=== PATIENT | male | born 1945 | race Caucasian/White ===

== ENCOUNTER 2017-11-20 22:29 | Emergency (ER) | payer MEDICARE, BC ==
[2017-11-20] MEDS ORDERED: diphenhydrAMINE 25 MG Cap PO ONE (22:56)
[2017-11-20] MEDS ORDERED: Famotidine 20 MG Tab PO ONE (22:59)
[2017-11-20] MEDS ORDERED: predniSONE 20 MG Tab PO ONE (23:00)
--- NOTE | 2017-11-20 23:14 | EDM.PDOC ---
ED HPI GENERAL MEDICAL PROBLEM - General Chief Complaint: Skin Complaint Stated Complaint: ALLERGIC REACTION Time Seen by Provider: 11/20/17 22:55 Source of Information: Reports: Patient, RN History Limitations: Reports: No Limitations - History of Present Illness INITIAL COMMENTS - FREE TEXT/NARRATIVE: 72 yo male presents with hives and generalized itching that began about 9 pm this rupesh. No difficulty with breathing or swallowing. Took diphenhydramine 50 mg about 90 minutes ago without relief. No hx of the same. Had shrimp today about 2 pm. No new medications. Here with his . 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 Medication(s) (Benedryl 50 mg po) denies pain Pain Score (Numeric/FACES): 0 - Related Data Allergies Allergy/AdvReac Type Severity Reaction Status Date / Time No Known Allergies Allergy Verified 11/20/17 22:40 Home Meds: Home Meds Albuterol Sulfate [Albuterol Sulfate HFA] 108 mcg IH Q4HR PRN 05/14/13 [History] Carvedilol 25 mg PO BID 05/14/13 [History] Cholecalciferol (Vitamin D3) [Vitamin D] 2,000 unit PO DAILY 05/14/13 [History] Citalopram Hydrobromide [Celexa] 40 mg PO DAILY 05/14/13 [History] Insulin Detemir [Levemir] 55 units SQ BEDTIME 05/14/13 [History] Lisinopril 40 mg PO DAILY 05/14/13 [History] [place]-3 Fatty Acids [[place]-3] 1,000 mg PO DAILY 05/14/13 [History] metFORMIN HCl [Metformin HCl] 1,000 mg PO BID 05/14/13 [History] Acetaminophen [Tylenol Arthritis Pain] 650 mg PO Q8H PRN 10/26/13 [History] Aspirin [[place] Aspirin] 81 mg PO DAILY 10/26/13 [History] diphenhydrAMINE [Benadryl] 25 mg PO Q6H PRN 02/28/16 [History] Past Medical History HEENT History: Reports: Cataract, Impaired Vision Cardiovascular History: Reports: Bypass, Hypertension Musculoskeletal History: Reports: Back Pain, Chronic, Gout, Other (See Below) Other Musculoskeletal History: compressed discs L2-L5 Psychiatric History: Reports: Depression Endocrine/Metabolic History: Reports: Diabetes, Type II, Obesity/BMI 30+ - Infectious Disease History Infectious Disease History: Reports: Chicken Pox, Measles - Past Surgical History HEENT Surgical History: Reports: Cataract Surgery Musculoskeletal Surgical History: Reports: Other (See Below) Other Musculoskeletal Surgeries/Procedures:: torn meniscus repair Social & Family History - Tobacco Use Smoking Status *Q: Never Smoker - Caffeine Use Caffeine Use: Reports: Coffee, Soda, Tea - Recreational Drug Use Recreational Drug Use: No ED ROS GENERAL - Review of Systems Review Of Systems: See Below Constitutional: Reports: No Symptoms HEENT: Reports: No Symptoms Respiratory: Reports: No Symptoms Cardiovascular: Reports: No Symptoms GI/Abdominal: Reports: No Symptoms : Reports: No Symptoms Musculoskeletal: Reports: No Symptoms Skin: Reports: Pruritis, Erythema, Urticaria Neurological: Reports: No Symptoms ED EXAM, SKIN/RASH Exam: See Below Exam Limited By: No Limitations General Appearance: Alert, WD/WN, No Apparent Distress, Obese Eye Exam: Bilateral Eye: Normal Inspection Ears: Normal External Exam, Normal Canal, Hearing Grossly Normal, Normal TMs, Other (bilateral hearing aids) Nose: Normal Inspection, Normal Mucosa, No Blood Throat/Mouth: Normal Inspection, Normal Lips, Normal Oropharynx, Normal Voice, No Airway Compromise Head: Atraumatic, Normocephalic Neck: Normal Inspection, Supple, Non-Tender Respiratory/Chest: No Respiratory Distress, Lungs Clear, Normal Breath Sounds, No Accessory Muscle Use Cardiovascular: Regular Rate, Rhythm, No Edema GI/Abdominal: Normal Bowel Sounds, Soft, Non-Tender, No Distention Back Exam: Normal Inspection. No: CVA Tenderness (R), CVA Tenderness (L) Extremities: Normal Inspection, Normal Range of Motion, Non-Tender, No Pedal Edema Neurological: Alert, Oriented, CN II-XII Intact, Normal Cognition, No Motor/ Sensory Deficits Psychiatric: Normal Affect, Normal Mood Skin: Warm, Dry, Intact, Normal Color, Erythema, Rash Location, Skin: Generalized Characteristics: Urticarial Course - Vital Signs Text/Narrative:: diphenhydramine 50 mg po, famotidine 40 mg po, prednisone 40 mg po-slight benefit Epi 0.5 mg subcut-mostly gone Last Recorded V/S: Last Vital Signs Temp 35.9 C 11/20/17 23:58 Pulse 50 L 11/21/17 00:13 Resp 13 11/21/17 00:13 BP 174/71 H 11/21/17 00:13 Pulse Ox 95 11/21/17 00:13 - Orders/Labs/Meds Meds: Medications Discontinued Medications Generic Name Dose Route Start Last Admin Trade Name Marcy PRN Reason Stop Dose Admin Diphenhydramine HCl 50 mg 11/20/17 22:56 11/20/17 23:01 Benadryl PO 11/20/17 22:57 50 mg ONETIME ONE Administration Epinephrine HCl 0.5 mg 11/20/17 23:58 11/21/17 00:08 Adrenalin SUBCUT 11/20/17 23:59 0.5 mg ONETIME ONE Administration Famotidine 40 mg 11/20/17 22:59 11/20/17 23:06 Pepcid PO 11/20/17 23:00 40 mg ONETIME ONE Administration Prednisone 40 mg 11/20/17 23:00 11/20/17 23:06 Prednisone PO 11/20/17 23:01 40 mg ONETIME ONE Administration Departure - Departure Time of Disposition: 00:30 Disposition: Home, Self-Care 01 Condition: Fair Clinical Impression: Urticaria - Discharge Information Referrals: Melvin Chiu MD [Primary Care Provider] - Forms: ED Department Discharge
[2017-11-20] MEDS ORDERED: EPINEPHrine 1 MG/ML SDV SUBCUT ONE (23:58)
== END 2017-11-21 00:44 | disposition home or self-care (01) ==
LOC: JP.ED 22:29
DX: L50.9 Urticaria, unspecified (principal); I10 Essential (primary) hypertension; E11.9 Type 2 diabetes mellitus without complications; E66.9 Obesity, unspecified; Z79.899 Other long term (current) drug therapy; Z79.4 Long term (current) use of insulin
CPT/HCPCS: 96372; 99283; A9270; J0171

== ENCOUNTER 2019-09-22 19:37 | Emergency (ER) | payer MEDICARE ==
[2019-09-22] MEDS ORDERED: Ketorolac 30 MG/ML SDV IM ONE (20:49)
--- NOTE | 2019-09-22 20:52 | EDM.PDOC ---
ED HPI GENERAL MEDICAL PROBLEM - General Chief Complaint: Lower Extremity Injury/Pain Stated Complaint: LEFT LEG PAIN Time Seen by Provider: 09/22/19 20:44 Source of Information: Reports: Patient, Family, RN Notes Reviewed History Limitations: Reports: No Limitations - History of Present Illness INITIAL COMMENTS - FREE TEXT/NARRATIVE: 74-year-old gentleman presents emergency department a complaint of left knee pain, he has been working with orthopedics as scheduled to be the orthopedic surgeon for possible surgical intervention does have some torn meniscus and partial torn ACL has went through steroid injections does use extra strength Tylenol has used Percocet in the past usually the Tylenol does control the pain however the last 24 hours pain has increased significantly. Percocet did not seem to provide good relief. Left Leg Pain Score (Numeric/FACES): 7 - Related Data Allergies Allergy/AdvReac Type Severity Reaction Status Date / Time NSAIDS (Non-Steroidal AdvReac Renal Verified 09/22/19 20:31 Anti-Inflamma Insufficiency Home Meds: Home Meds Cholecalciferol (Vitamin D3) [Vitamin D] 2,000 unit PO DAILY 05/14/13 [History] Citalopram Hydrobromide [Celexa] 40 mg PO DAILY 05/14/13 [History] Insulin Detemir [Levemir] 60 units SQ BEDTIME 05/14/13 [History] Lisinopril 40 mg PO DAILY 05/14/13 [History] carvediloL [Carvedilol] 25 mg PO BID 05/14/13 [History] metFORMIN HCl [Metformin HCl] 1,000 mg PO BID 05/14/13 [History] Acetaminophen [Tylenol Arthritis Pain] 650 mg PO Q6H PRN 10/26/13 [History] Aspirin [[place] Aspirin] 81 mg PO DAILY 10/26/13 [History] diphenhydrAMINE [Benadryl] 50 mg PO BEDTIME PRN 02/28/16 [History] Cyclobenzaprine [Flexeril] 10 mg PO TID PRN 10/01/18 [History] Glucosam/Chond-MSM 2/C/D3/Ruben [Mtidrpdbti-Fkefzrrhtkr-RBY] 1 tab PO BID [History] Insulin Aspart [NovoLOG] 6 - 100 units SUBCUT TIDMEALS 10/01/18 [History] Primidone [Mysoline] 150 mg PO DAILY 10/01/18 [History] atorvaSTATin [Lipitor] 40 mg PO DAILY 10/01/18 [History] Past Medical History HEENT History: Reports: Cataract, Hard of Hearing, Impaired Vision, Other (See Below) Other HEENT History: wears glasses Cardiovascular History: Reports: Bypass, High Cholesterol, Hypertension Respiratory History: Reports: Sleep Apnea Genitourinary History: Reports: Other (See Below) Other Genitourinary History: decreased kidney function Musculoskeletal History: Reports: Back Pain, Chronic, Gout, Other (See Below) Other Musculoskeletal History: compressed discs L2-L5 Neurological History: Reports: Other (See Below) Other Neuro History: essential tremor Psychiatric History: Reports: Depression Endocrine/Metabolic History: Reports: Diabetes, Type II, Obesity/BMI 30+ - Infectious Disease History Infectious Disease History: Reports: Chicken Pox - Past Surgical History HEENT Surgical History: Reports: Cataract Surgery Cardiovascular Surgical History: Reports: Coronary Artery Bypass Musculoskeletal Surgical History: Reports: Shoulder Surgery, Other (See Below) Other Musculoskeletal Surgeries/Procedures:: torn meniscus repair Social & Family History - Tobacco Use Smoking Status *Q: Never Smoker Second Hand Smoke Exposure: No - Caffeine Use Caffeine Use: Reports: Coffee - Recreational Drug Use Recreational Drug Use: No Review of Systems - Review of Systems Review Of Systems: See Below Musculoskeletal: Reports: Joint Pain (Left knee) Skin: Reports: No Symptoms Neurological: Reports: No Symptoms ED EXAM, GENERAL - Physical Exam Exam: See Below Free Text/Narrative:: Examination left knee I do not appreciate any erythema there is no edema I cannot elicit any pinpoint tenderness to palpation he has full range of motion both passive and active but it is painful for him with active motion no pain on passive motion pedal pulses +2 Exam Limited By: No Limitations General Appearance: Alert, WD/WN, No Apparent Distress Respiratory/Chest: No Respiratory Distress Course - Vital Signs Last Recorded V/S: Last Vital Signs Temp 97.7 F 09/22/19 20:06 Pulse 66 09/22/19 21:40 Resp 14 09/22/19 20:37 BP 164/65 H 09/22/19 21:40 Pulse Ox 96 09/22/19 21:40 - Orders/Labs/Meds Meds: Medications Discontinued Medications Generic Name Dose Route Start Last Admin Trade Name Freq PRN Reason Stop Dose Admin Hydromorphone HCl 1 mg 09/22/19 22:06 09/22/19 22:31 Dilaudid IM 09/22/19 22:07 1 mg ONETIME ONE Administration Ketorolac Tromethamine 30 mg 09/22/19 20:49 09/22/19 21:00 Toradol IM 09/22/19 20:50 30 mg ONETIME ONE Administration Departure - Departure Time of Disposition: 23:07 Disposition: Home, Self-Care 01 Condition: Fair Clinical Impression: Left knee pain Qualifiers: Chronicity: acute Qualified Code(s): M25.562 - Pain in left knee - Discharge Information Instructions: Knee Pain, Adult Referrals: Melvin Chiu MD [Primary Care Provider] - Forms: ED Department Discharge Additional Instructions: Try the ketorolac as needed, use your other pain medication as needed keep your follow-up appointment with orthopedics next week Sepsis Event Note - Evaluation Sepsis Screening Result: No Definite Risk - Focused Exam Vital Signs: Vital Signs Temp Pulse Resp BP Pulse Ox 09/22/19 21:40 66 164/65 H 96 09/22/19 20:37 64 14 167/61 H 96 09/22/19 20:06 97.7 F 80 18 181/69 H 99 Date Exam was Performed: 09/22/19 Time Exam was Performed: 23:06 - Assessment/Plan Plan: Assessment Acuity = acute Site and laterality = left knee pain Etiology = unknown Manifestations = none Location of injury = Home Lab values = none Plan We did receive 30 mg Toradol IM as well as 1 mg Dilaudid IM discharged home with Toradol 10 mg 1 tab p.o. 3 times daily PRN total #20 his creatinine is 1.35 last month I counseled him on this medication follow-up with his orthopedic surgeon on Friday of next week This note was dictated using [employer] voice recognition software please call with any questions on syntax or grammar.
[2019-09-22] MEDS ORDERED: HYDROmorphone 1 MG/ML Syringe IM ONE (22:06)
== END 2019-09-22 23:19 | disposition home or self-care (01) ==
LOC: JP.ED 19:37
DX: M25.562 Pain in left knee (principal); E78.00 Pure hypercholesterolemia, unspecified; I10 Essential (primary) hypertension; E11.9 Type 2 diabetes mellitus without complications; E66.9 Obesity, unspecified; Z88.8 Allergy status to other drugs, medicaments and biological substances; Z79.4 Long term (current) use of insulin; Z79.899 Other long term (current) drug therapy; Z79.82 Long term (current) use of aspirin; Z68.36 Body mass index [BMI] 36.0-36.9, adult
CPT/HCPCS: 96372; 99283; J1170; J1885

== ENCOUNTER 2021-10-05 08:36 | Day surgery (SDC) | payer MEDICARE ==
[~2021-10-05 08:36] MED LIST: Dextrose 5%-Lactated Ringers 1,000 ML IV SCH; Lidocaine 1% with EPINEPHrine 1:100,000 50 ML MDV ONE; Midazolam 1 MG/ML 2 ML SDV ONE; Propofol 200 MG/20 ML SDV ONE; fentaNYL 100 MCG/2 ML SDV ONE
[2021-10-05] MEDS ORDERED: Lidocaine 1% with EPINEPHrine 1:100,000 50 ML MDV INJECT ONE (10:59)
[2021-10-05] MEDS ORDERED: Propofol 200 MG/20 ML SDV ONE (11:19)
== END 2021-10-05 12:42 | disposition home or self-care (01) ==
LOC: JP.SDS 08:36
PROVIDERS: ATTEND Surgery
DX: Z12.11 Encounter for screening for malignant neoplasm of colon (principal); E04.1 Nontoxic single thyroid nodule; K64.9 Unspecified hemorrhoids; K57.30 Diverticulosis of large intestine without perforation or abscess without bleeding
CPT/HCPCS: 76998; J2250; J2704; J3010

== ENCOUNTER 2021-11-23 08:45 | Inpatient (IN) | payer MEDICARE ==
[2021-11-23] MEDS ORDERED: Acetaminophen 500 MG Tab PO ONE (10:00)
[2021-11-23] MEDS ORDERED: ceFAZolin 2 GM in Premix Bag 1 BAG IV ONE (10:30)
[2021-11-23] MEDS ORDERED: fentaNYL 250 MCG/5 ML SDV ONE (10:34)
[2021-11-23] MEDS ORDERED: Ondansetron 4 MG/2 ML SDV ONE (10:35)
[2021-11-23] MEDS ORDERED: Dexamethasone 4 MG/ML SDV ONE (10:35)
[2021-11-23] MEDS ORDERED: Glycopyrrolate 0.2 MG/ML 5 ML MDV ONE (10:35)
[2021-11-23] MEDS ORDERED: Rocuronium 50 MG/5 ML Vial ONE ×2 (10:35→12:54)
[2021-11-23] MEDS ORDERED: Neostigmine Methylsulfate 1 MG/ML 5 ML Syringe ONE (10:35)
[2021-11-23] MEDS ORDERED: Propofol 200 MG/20 ML SDV ONE (10:35)
[2021-11-23] MEDS ORDERED: Succinylcholine 200 MG/10 ML MDV ONE (10:35)
[2021-11-23] MEDS: Dextrose 5%-Lactated Ringers 1,000 ML IV SCH ×2 (10:46→10:58)
[2021-11-23] MEDS ORDERED: diphenhydrAMINE 25 MG Cap PO PRN (14:48)
[2021-11-23] MEDS ORDERED: HYDROmorphone/Normal Saline 6 MG/30 ML PCA Vial IV PRN (14:48)
[2021-11-23] MEDS ORDERED: Ondansetron 4 MG/2 ML SDV IVPUSH PRN ×2 (14:48→16:38)
[2021-11-23] MEDS ORDERED: Naloxone 0.4 MG/ML SDV IVPUSH PRN (14:48)
[2021-11-23] MEDS ORDERED: diphenhydrAMINE 50 MG/ML SDV IVPUSH PRN (14:48)
[2021-11-23] MEDS ORDERED: 50% Dextrose in Water 50 ML Syringe IVPUSH PRN (17:06)
[2021-11-23] MEDS ORDERED: Glucagon,Human Recombinant 1 MG Vial IM PRN (17:06)
[2021-11-23] MEDS ORDERED: Glucose Gel 15 GM in 37.5 GM Tube PO PRN (17:06)
[2021-11-23] MEDS: Acetaminophen 325 MG Tab PO SCH ×2 (17:51→23:05)
[2021-11-23] MEDS: ceFAZolin 2 GM in Premix Bag 1 BAG IV SCH (17:51)
[2021-11-23] MEDS: Insulin Lispro 100 Unit/ML 3 ML KwikPen SUBCUT SCH ×2 (17:54→23:06)
[2021-11-23] MEDS ORDERED: Insulin Lispro 100 Unit/ML 3 ML KwikPen SUBCUT SCH (18:00)
[2021-11-23] MEDS ORDERED: Insulin Glargine,Human Rec. Analog 100 Units/ML 3 ML Pen SUBCUT SCH (21:00)
[2021-11-23] MEDS: Oxybutynin 5 MG Tab PO SCH (21:37)
[2021-11-23] MEDS: metFORMIN 500 MG Tab PO SCH (21:37)
[2021-11-23] MEDS: Primidone 50 MG Tab PO SCH (21:38)
[2021-11-23] MEDS: Carvedilol 12.5 MG Tab PO SCH (21:38)
[2021-11-23] MEDS: Insulin Glargine,Human Rec. Analog 100 Units/ML 3 ML Pen SUBCUT SCH (21:39)
[2021-11-24] MEDS ORDERED: Lactated Ringers 500 ML IV ONE (02:15)
[2021-11-24] MEDS: ceFAZolin 2 GM in Premix Bag 1 BAG IV SCH ×2 (03:35→10:16)
[2021-11-24] MEDS: Dextrose 5%-Lactated Ringers 1,000 ML IV SCH (04:42)
[2021-11-24] MEDS: Acetaminophen 325 MG Tab PO SCH ×3 (05:00→17:00)
[2021-11-24] MEDS ORDERED: Lactated Ringers 1,000 ML IV SCH (08:15)
[2021-11-24] MEDS: Magnesium Sulfate/Water 2 GM in Premix Bag 1 BAG IV SCH ×3 (08:30→20:01)
[2021-11-24] MEDS: metFORMIN 500 MG Tab PO SCH ×2 (08:31→22:08)
[2021-11-24] MEDS: Oxybutynin 5 MG Tab PO SCH ×2 (08:32→22:09)
[2021-11-24] MEDS: Citalopram 20 MG Tab PO SCH (08:32)
[2021-11-24] MEDS: Aspirin 81 MG Tab.EC PO SCH (08:32)
[2021-11-24] MEDS: Carvedilol 12.5 MG Tab PO SCH ×2 (08:32→22:14)
[2021-11-24] MEDS: Primidone 50 MG Tab PO SCH ×2 (08:33→22:09)
[2021-11-24] MEDS ORDERED: Insulin Glargine,Human Rec. Analog 100 Units/ML 3 ML Pen SUBCUT SCH (09:00)
[2021-11-24] MEDS ORDERED: Primidone 50 MG Tab PO SCH (09:00)
[2021-11-24] MEDS: Insulin Glargine,Human Rec. Analog 100 Units/ML 3 ML Pen SUBCUT SCH ×2 (10:18→22:07)
[2021-11-24] MEDS: Insulin Lispro 100 Unit/ML 3 ML KwikPen SUBCUT SCH ×3 (10:54→18:14)
[2021-11-24] MEDS ORDERED: HYDROmorphone 2 MG Tab PO PRN (13:51)
[2021-11-24] MEDS ORDERED: 50% Dextrose in Water 50 ML Syringe IVPUSH PRN (17:14)
[2021-11-24] MEDS ORDERED: Glucagon,Human Recombinant 1 MG Vial IM PRN (17:14)
[2021-11-24] MEDS ORDERED: Insulin Lispro 100 Unit/ML 3 ML KwikPen SUBCUT PRN (17:14)
[2021-11-24] MEDS ORDERED: Glucose Gel 15 GM in 37.5 GM Tube PO PRN (17:14)
[2021-11-24] MEDS: ClonazePAM 1 MG Tab PO PRN (22:08)
[2021-11-25] MEDS: Acetaminophen 325 MG Tab PO SCH ×5 (00:43→23:44)
[2021-11-25] MEDS: Magnesium Sulfate/Water 2 GM in Premix Bag 1 BAG IV SCH ×4 (03:29→21:25)
[2021-11-25] MEDS ORDERED: Calcium Carbonate 500 MG Tab.Chew PO PRN (08:49)
[2021-11-25] MEDS ORDERED: Lactated Ringers 1,000 ML IV SCH (09:00)
[2021-11-25] MEDS: metFORMIN 500 MG Tab PO SCH ×2 (10:22→21:29)
[2021-11-25] MEDS: Citalopram 20 MG Tab PO SCH (10:23)
[2021-11-25] MEDS: Aspirin 81 MG Tab.EC PO SCH (10:23)
[2021-11-25] MEDS: Carvedilol 12.5 MG Tab PO SCH ×2 (10:23→21:29)
[2021-11-25] MEDS: Oxybutynin 5 MG Tab PO SCH ×2 (10:23→21:29)
[2021-11-25] MEDS: Primidone 50 MG Tab PO SCH ×2 (10:24→21:29)
[2021-11-25] MEDS: Insulin Glargine,Human Rec. Analog 100 Units/ML 3 ML Pen SUBCUT SCH ×2 (10:25→21:30)
[2021-11-25] MEDS ORDERED: Potassium Chloride 20 MEQ Tab.ER PO ONE (11:00)
[2021-11-25] MEDS: Insulin Lispro 100 Unit/ML 3 ML KwikPen SUBCUT SCH ×3 (12:41→17:19)
[2021-11-25] MEDS: ClonazePAM 1 MG Tab PO PRN (23:44)
[2021-11-26] MEDS: Magnesium Sulfate/Water 2 GM in Premix Bag 1 BAG IV SCH ×2 (01:44→09:17)
[2021-11-26] MEDS: Acetaminophen 325 MG Tab PO SCH ×2 (06:04→11:26)
[2021-11-26] MEDS ORDERED: Levothyroxine 100 MCG Tab PO SCH (07:30)
[2021-11-26] MEDS ORDERED: LEVOTHYROXINE PO SCH ×2 (07:30)
[2021-11-26] MEDS ORDERED: Magnesium Oxide 400 MG Tab PO SCH (09:00)
[2021-11-26] MEDS: Insulin Lispro 100 Unit/ML 3 ML KwikPen SUBCUT SCH ×2 (09:17→12:22)
[2021-11-26] MEDS: Aspirin 81 MG Tab.EC PO SCH (09:19)
[2021-11-26] MEDS: Oxybutynin 5 MG Tab PO SCH (09:19)
[2021-11-26] MEDS: Citalopram 20 MG Tab PO SCH (09:19)
[2021-11-26] MEDS: Insulin Glargine,Human Rec. Analog 100 Units/ML 3 ML Pen SUBCUT SCH (09:19)
[2021-11-26] MEDS: metFORMIN 500 MG Tab PO SCH (09:20)
[2021-11-26] MEDS: Primidone 50 MG Tab PO SCH (09:20)
[2021-11-26] MEDS: Carvedilol 12.5 MG Tab PO SCH (09:21)
== END 2021-11-26 12:45 | disposition home or self-care (01) | DRG 627 ==
LOC: EDSTATUS 08:45 → JP.MS 09:35 → JP.SDS 09:35 → JP.MS 14:45
PROVIDERS: ADMIT Surgery; ATTEND Surgery
PROC: 0GTK0ZZ Resection of Thyroid Gland, Open Approach (ICD-10-PCS; principal; 2021-11-23)
PROC: 0GTH0ZZ Resection of Right Thyroid Gland Lobe, Open Approach (ICD-10-PCS; 2021-11-23)
PROC: 0GTG0ZZ Resection of Left Thyroid Gland Lobe, Open Approach (ICD-10-PCS; 2021-11-23)
PROC: 0GTJ0ZZ Resection of Thyroid Gland Isthmus, Open Approach (ICD-10-PCS; 2021-11-23)
DX: C73 Malignant neoplasm of thyroid gland (principal); E78.49 Other hyperlipidemia; E13.69 Other specified diabetes mellitus with other specified complication; N40.1 Benign prostatic hyperplasia with lower urinary tract symptoms; J31.0 Chronic rhinitis; E13.42 Other specified diabetes mellitus with diabetic polyneuropathy; R33.8 Other retention of urine; G47.33 Obstructive sleep apnea (adult) (pediatric); Z88.8 Allergy status to other drugs, medicaments and biological substances; Z87.891 Personal history of nicotine dependence; Z95.1 Presence of aortocoronary bypass graft; Z86.16 Personal history of COVID-19
CPT/HCPCS: 36415; 51798; 80048; 82947; 83735; 84100; 88305; 88307; 88342; 93005; A9270-GY; J0330; J0690; J1100; J1170; J1815; J1815-GY; J2020; J2405; J2704; J2710; J3010; J3475; J3490; J7120; J7121

== ENCOUNTER 2023-04-19 09:51 | Emergency (ER) | payer MEDICARE ==
[2023-04-19 10:36] LABS: BASOPHILS PERCENT AUTO 0.4 % (0.1-1.3); EOSINOPHILS PERCENT AUTO 0.4 % (0.0-5.4); HEMATOCRIT 42.3 % (38.4-49.7); HEMOGLOBIN 14.4 g/dL (12.9-16.9); IMMATURE GRAN PERCENT AUTO 0.4 % (0.0-0.7); LYMPHOCYTES ABSOLUTE AUTO 0.23 K/uL (0.8-3.3); LYMPHOCYTES PERCENT AUTO 4.1 % (11.4-47.7); MEAN CORPUSCULAR HEMOGLOBIN 30.8 pg (31.6-35.5); MEAN CORPUSCULAR VOLUME 90.4 fL (81.4-99.0); MONOCYTES ABSOLUTE AUTO 0.36 K/uL (0.20-0.90); MONOCYTES PERCENT AUTO 6.4 % (3.3-12.6); NEUTROPHILS ABSOLUTE AUTO 4.99 K/uL (1.0-7.6); NEUTROPHILS PERCENT AUTO 88.3 % (40.0-78.1); PLATELET COUNT,PLT 160 K/uL (130-375); RED BLOOD CELL COUNT 4.68 M/uL (4.14-5.76); WHITE BLOOD CELL COUNT,WBC 5.6 K/uL (3.2-11.0)
[2023-04-19 10:38] LABS: BASOPHILS ABSOLUTE AUTO 0.02 K/uL (0.00-0.10); EOSINOPHILS ABSOLUTE AUTO 0.02 K/uL (0.00-0.40); IMMATURE GRAN ABSOLUTE AUTO 0.02 K/uL (0.00-0.23)
[2023-04-19 10:39] LABS: APPEARANCE,URINE CLEAR (CLEAR); BILIRUBIN,URINE NEGATIVE (NEGATIVE); COLOR,URINE YELLOW (YELLOW); GLUCOSE,URINE 500 mg/dL (NEGATIVE); KETONES,URINE NEGATIVE (NEGATIVE); LEUKOCYTE ESTERASE,URINE NEGATIVE (NEGATIVE); NITRITE,URINE NEGATIVE (NEGATIVE); OCCULT BLOOD,URINE NEGATIVE (NEGATIVE); PH,URINE 6.5 (5.0-8.0); PROTEIN,URINE NEGATIVE (NEGATIVE); UROBILINOGEN,URINE 0.2 EU/dL (0.2-1.0)
[2023-04-19 10:49] LABS: AMORPHOUS SEDIMENT,URINE NOT SEEN; BACTERIA,URINE NOT SEEN; EPITHELIAL CELLS,URINE NOT SEEN; MUCUS,URINE NOT SEEN; RBC,URINE NOT SEEN (0-5); WBC,URINE NOT SEEN (0-5)
[2023-04-19 10:50] LABS: CALCIUM 7.9 mg/dL (8.5-10.1); CREATININE 1.4 mg/dL (0.8-1.3); EST CRCL DRUG DOSING (CG) 48.54 mL/min; POTASSIUM,K 4.6 mmol/L (3.6-5.2)
[2023-04-19 10:51] LABS: ANION GAP 18.6 mmol/L (5.0-14.0)
[2023-04-19] MEDS ORDERED: Sodium Chloride 0.9% 1,000 ML IV ONE (10:58)
== END 2023-04-19 13:30 | disposition home or self-care (01) ==
LOC: JP.ED 09:51
DX: N13.9 Obstructive and reflux uropathy, unspecified (principal); E11.22 Type 2 diabetes mellitus with diabetic chronic kidney disease; I12.9 Hypertensive chronic kidney disease with stage 1 through stage 4 chronic kidney disease, or unspecified chronic kidney disease; N18.9 Chronic kidney disease, unspecified; E11.21 Type 2 diabetes mellitus with diabetic nephropathy; I25.10 Atherosclerotic heart disease of native coronary artery without angina pectoris; E78.00 Pure hypercholesterolemia, unspecified; E66.9 Obesity, unspecified; Z68.35 Body mass index [BMI] 35.0-35.9, adult; Z86.16 Personal history of COVID-19; Z79.4 Long term (current) use of insulin; Z79.899 Other long term (current) drug therapy; Z79.84 Long term (current) use of oral hypoglycemic drugs; Z88.8 Allergy status to other drugs, medicaments and biological substances
CPT/HCPCS: 36415; 51702; 80048; 81001; 85025; 96360; 99283; J7030

== ENCOUNTER 2023-07-04 06:40 | Day surgery (SDC) | payer MEDICARE ==
[2023-07-04] MEDS ORDERED: Bupivacaine 0.5% 50 ML MDV ONE (06:46)
[2023-07-04] MEDS ORDERED: Lidocaine 1% with EPINEPHrine 1:100,000 50 ML MDV ONE (06:46)
[2023-07-04] MEDS ORDERED: Sodium Chloride 0.9% 1,000 ML IV SCH (07:00)
[2023-07-04] MEDS ORDERED: Propofol 200 MG/20 ML SDV ONE (07:16)
[2023-07-04] MEDS ORDERED: fentaNYL 50 MCG/ML SDV ONE (07:16)
[2023-07-04] MEDS ORDERED: ceFAZolin 2 GM in Sodium Chloride 0.9% 50 ML IV ONE (07:30)
[2023-07-04] MEDS ORDERED: Lidocaine 1% 2 ML ONE (07:43)
== END 2023-07-04 09:45 | disposition home or self-care (01) ==
LOC: JP.SDS 06:40
PROVIDERS: ATTEND Surgery
DX: L98.492 Non-pressure chronic ulcer of skin of other sites with fat layer exposed (principal); E11.42 Type 2 diabetes mellitus with diabetic polyneuropathy; I12.9 Hypertensive chronic kidney disease with stage 1 through stage 4 chronic kidney disease, or unspecified chronic kidney disease; N18.30 Chronic kidney disease, stage 3 unspecified; E11.22 Type 2 diabetes mellitus with diabetic chronic kidney disease; F41.1 Generalized anxiety disorder; I25.10 Atherosclerotic heart disease of native coronary artery without angina pectoris; E11.69 Type 2 diabetes mellitus with other specified complication; E78.2 Mixed hyperlipidemia; Z86.16 Personal history of COVID-19; G47.33 Obstructive sleep apnea (adult) (pediatric); E66.01 Morbid (severe) obesity due to excess calories; Z68.34 Body mass index [BMI] 34.0-34.9, adult; Z79.84 Long term (current) use of oral hypoglycemic drugs; Z79.4 Long term (current) use of insulin; Z79.899 Other long term (current) drug therapy
CPT/HCPCS: 11042; 88304; J0690; J2704; J3010; J3490; J7030

== ENCOUNTER 2024-08-02 16:33 | Emergency (ER) | payer MEDICARE ==
[2024-08-02 18:11] LABS: BASOPHILS PERCENT AUTO 0.2 % (0.1-1.3); EOSINOPHILS ABSOLUTE AUTO 0.11 K/uL (0.00-0.40); EOSINOPHILS PERCENT AUTO 2.7 % (0.0-5.4); HEMOGLOBIN 16.7 g/dL (12.9-16.9); IMMATURE GRAN PERCENT AUTO 0.2 % (0.0-0.7); LYMPHOCYTES ABSOLUTE AUTO 1.09 K/uL (0.8-3.3); LYMPHOCYTES PERCENT AUTO 26.6 % (11.4-47.7); MEAN CORPUSCULAR HEMOGLOBIN 31.8 pg (31.6-35.5); MEAN CORPUSCULAR HGB CONC 34.8 g/dL (31.6-35.5); MEAN CORPUSCULAR VOLUME 91.4 fL (81.4-99.0); MONOCYTES PERCENT AUTO 9.8 % (3.3-12.6); NEUTROPHILS ABSOLUTE AUTO 2.48 K/uL (1.0-7.6); NEUTROPHILS PERCENT AUTO 60.5 % (40.0-78.1); PLATELET COUNT,PLT 151 K/uL (130-375); RED BLOOD CELL COUNT 5.25 M/uL (4.14-5.76); WHITE BLOOD CELL COUNT,WBC 4.1 K/uL (3.2-11.0)
[2024-08-02 18:15] LABS: BASOPHILS ABSOLUTE AUTO 0.01 K/uL (0.00-0.10); IMMATURE GRAN ABSOLUTE AUTO 0.01 K/uL (0.00-0.23)
[2024-08-02 18:28] LABS: INR 1.1
[2024-08-02 18:40] LABS: A/G RATIO 1.1 (1.2-2.2); ALANINE AMINOTRANSFERASE,ALT 36 U/L (12-78); ALBUMIN 3.8 g/dL (3.4-5.0); ALKALINE PHOSPHATASE 105 U/L (46-116); ANION GAP 14.7 mmol/L (5.0-14.0); ASPARTATE AMNIOTRANSFERASE,AST 27 U/L (15-37); BILIRUBIN TOTAL 0.4 mg/dL (0.2-1.0); BLOOD UREA NITROGEN,BUN 15 mg/dL (7-18); CALCIUM 9.1 mg/dL (8.5-10.1); CARBON DIOXIDE,CO2 28 mmol/L (21-32); CHLORIDE,CL 100 mmol/L (100-108); CREATININE 1.2 mg/dL (0.8-1.3); EST CRCL DRUG DOSING (CG) 54.91 mL/min; ESTIMATED GFR 62 mL/min (>60); GLUCOSE RANDOM 136 mg/dL (74-106); POTASSIUM,K 4.7 mmol/L (3.6-5.2); PRO B-TYPE NATRIUR PEPT,BNPPRO 273 pg/mL (5-450); PROTEIN TOTAL,TP 7.4 g/dL (6.4-8.2); SODIUM,NA 138 mmol/L (140-148); TROPONIN I HIGH SENSITIVITY 9.5 pg/mL (<=60.3)
== END 2024-08-02 18:51 | disposition home or self-care (01) ==
LOC: JP.ED 16:33
DX: R07.2 Precordial pain (principal); I12.9 Hypertensive chronic kidney disease with stage 1 through stage 4 chronic kidney disease, or unspecified chronic kidney disease; I25.810 Atherosclerosis of coronary artery bypass graft(s) without angina pectoris; N18.9 Chronic kidney disease, unspecified; R06.89 Other abnormalities of breathing; M19.90 Unspecified osteoarthritis, unspecified site; E78.00 Pure hypercholesterolemia, unspecified; E66.9 Obesity, unspecified; E11.9 Type 2 diabetes mellitus without complications; Z88.8 Allergy status to other drugs, medicaments and biological substances; Z79.82 Long term (current) use of aspirin; Z79.4 Long term (current) use of insulin; Z79.890 Hormone replacement therapy; Z79.899 Other long term (current) drug therapy; Z86.16 Personal history of COVID-19; Z68.36 Body mass index [BMI] 36.0-36.9, adult
CPT/HCPCS: 36415; 71045; 71046; 71046-26; 80053; 83880; 84484; 85025; 85610; 93005; 93010; 99283; 99285

== ENCOUNTER 2025-06-15 16:28 | Emergency (ER) | payer MEDICARE ==
[2025-06-15] MEDS: Lidocaine 1% with EPINEPHrine 1:100,000 20 ML MDV INJECT ONE (16:58)
== END 2025-06-15 17:59 | disposition home or self-care (01) ==
LOC: JP.ED 16:28
DX: S01.21XA Laceration without foreign body of nose, initial encounter (principal); S01.81XA Laceration without foreign body of other part of head, initial encounter; I25.10 Atherosclerotic heart disease of native coronary artery without angina pectoris; I12.9 Hypertensive chronic kidney disease with stage 1 through stage 4 chronic kidney disease, or unspecified chronic kidney disease; N18.9 Chronic kidney disease, unspecified; E78.00 Pure hypercholesterolemia, unspecified; E11.22 Type 2 diabetes mellitus with diabetic chronic kidney disease; E03.9 Hypothyroidism, unspecified; E66.9 Obesity, unspecified; E11.21 Type 2 diabetes mellitus with diabetic nephropathy; Z95.1 Presence of aortocoronary bypass graft; Z79.899 Other long term (current) drug therapy; Z79.84 Long term (current) use of oral hypoglycemic drugs; Z79.82 Long term (current) use of aspirin; Z79.4 Long term (current) use of insulin; Z88.8 Allergy status to other drugs, medicaments and biological substances; Z88.6 Allergy status to analgesic agent; W01.198A Fall on same level from slipping, tripping and stumbling with subsequent striking against other object, initial encounter; Z68.34 Body mass index [BMI] 34.0-34.9, adult
CPT/HCPCS: 12011; 99282; J2004